=== PATIENT | female | born 1985 | race African-American/Black ===

== ENCOUNTER 2016-08-29 15:14 | Emergency (ER) | payer BC ==
[~2016-08-29] VITALS: Ht 165.1 cm; Wt 158.0 kg
[~2016-08-29 15:14] MED LIST: ALBU0.086 NEB; DULE200A PO
[2016-08-29 15:27] VITALS: BP 136/83; PULSE 86; RESP 18; TEMP 98.6; O2SAT 100
[2016-08-29] MEDS ORDERED: VENTAER INH (15:34)
[2016-08-29] MEDS ORDERED: DULE100A INH (15:34)
[2016-08-29] MEDS ORDERED: PRED-503 PO (15:56)
--- NOTE | 2016-08-29 15:56 | PD ---
HPI Chief Complaint: Respiratory Symptoms Time Seen by Provider: 15:36 Travel History International Travel<30 days: No Contact w/Intl Traveler<30days: No Traveled to known affect area: No History of Present Illness HPI Is a 31-year-old woman who presents to the emergency department complaining that her breathing doesn't feel right. States she's had a dry cough, nonproductive, for the past several days. She's also had some dry mouth. She' s had some shortness of breath that feels a little bit like her asthma, but not like anything she's had before. States it just feels kind of off. It doesn't really go away with her inhalers. No chest pain. No fevers or chills. No leg swelling. She otherwise has been feeling generally well and healthy. She's had dry mouth but no polyuria or polydipsia. She otherwise has been feeling generally well and healthy. History Past Medical History Narrative Medical Asthma Anemia LMP: LAST WEEK Menopausal: No : 1 Social History Alcohol Use: Yes (occas) Tobacco Use: No Allergies-Medications (Allergen,Severity, Reaction): Coded Allergies: No Known Allergies (Verified , 08/29/16) Reported Meds & Prescriptions Reported Meds & Active Scripts Active Deltasone (Prednisone) 20 Mg Tab 60 Mg PO DAILY 5 Days Reported Ventolin Hfa 18 GM Inh (Albuterol Sulfate) 90 Mcg/Act Aer 1 Puff INH Q4H PRN Dulera 120 Act Inh (Mometasone-Formoterol 120 Act Inh) 100-5 Mcg/Act Inh 2 Puff INH BID Review of Systems Except as stated in HPI: all other systems reviewed are Neg Physical Exam Narrative GENERAL: Well-appearing 31-year-old woman, no acute distress. Obese. SKIN: Warm and dry. HEAD: Atraumatic. Normocephalic. EYES: Pupils equal and round. No scleral icterus. No injection or drainage. No pallor evidence of anemia. ENT: No nasal bleeding or discharge. Mucous membranes pink and moist. NECK: Trachea midline. No JVD. CARDIOVASCULAR: Regular rate and rhythm. No murmur appreciated. RESPIRATORY: No accessory muscle use. Clear to auscultation. Breath sounds equal bilaterally. GASTROINTESTINAL: Abdomen soft, non-tender, nondistended. Hepatic and splenic margins not palpable. MUSCULOSKELETAL: No obvious deformities. No edema. NEUROLOGICAL: Awake and alert. No obvious cranial nerve deficits. Motor grossly within normal limits. Normal speech. PSYCHIATRIC: Appropriate mood and affect; insight and judgment normal. Data Data Last Documented VS Vital Signs Date Time Temp Pulse Resp B/P Pulse Ox O2 Delivery O2 Flow Rate FiO2 08/29/16 15:27 98.6 86 18 136/83 100 Orders Chest, Pa & Lat (08/29/16 ) Blood Glucose (08/29/16 15:46) MDM Medical Decision Making Medical Screen Exam Complete: Yes Emergency Medical Condition: Yes Interpretation(s) Chest x-ray negative Differential Diagnosis Bronchitis, URI, PE, asthma exacerbation, other Narrative Course Medical decision making Is a 31-year-old woman presents to the emergency Department with abnormal breathing.-year-old wheezing on exam to suggest asthma exacerbation. She did just use her rescue inhaler. She probably has some element of bronchitis and asthma flare causing her symptoms. We will see any evidence of PE. The dry mouth and she's having we'll check her blood sugar as well. Diagnosis Primary Impression: Bronchitis Patient Instructions: General Instructions Additional Instructions: Take Deltasone as prescribed. Continue albuterol every 4 hours until symptoms resolve. Follow-up with your primary doctor in 2-4 days. Return to the emergency department for any new or worsening symptoms. Med/Other Pt SpecificInfo: Prescription(s) given Scripts Prednisone (Deltasone)20 Mg Tab60 Mg PO DAILY 5 Days Prov:Jeffrey Mccormick MD 08/29/16 Disposition: 01 DISCHARGE HOME Condition: Stable Jeffrey Mccormick MD Aug 29, 2016 15:56
--- NOTE | 2016-08-29 16:07 | RADHPO ---
EXAM DATE/TIME: 08/29/2016 15:48 [facility] COMPARISON: CHEST PA & LAT, February 08, 2008, 11:11. INDICATIONS : Shortness of breath and cough. MEDICAL HISTORY : Asthma SURGICAL HISTORY : None. ENCOUNTER: Initial ACUITY: 2 days PAIN SCORE: 0/10 LOCATION: Bilateral chest FINDINGS: PA and lateral views of the chest demonstrate the lungs to be symmetrically aerated without evidence of mass, infiltrate or effusion. The cardiomediastinal contours are unremarkable. Osseous structure s are intact. CONCLUSION: No acute disease. Winston Mascorro MD on August 29, 2016 at 16:04 Board Certified Radiologist. This report was verified electronically.
== END 2016-08-29 16:25 | disposition home or self-care (01) ==
LOC: PHED 15:14
DX: J40 Bronchitis, not specified as acute or chronic (principal)
CPT/HCPCS: 71020; 99283